=== PATIENT | male | born 1945 | race American Indian/Alaskan Native ===

== ENCOUNTER 2016-08-09 12:12 | Emergency (ER) | payer OTHER ==
[2016-08-09 12:25] VITALS: BP 176/84; TEMP 98.9
[2016-08-09] MEDS ORDERED: SODIUM CHLORIDE 0.9% 500 ML IV SCH (12:30)
[2016-08-09] MEDS ORDERED: IPRATROPIUM-ALBUTEROL 3 ML NEB INHALATION STA (12:47)
--- NOTE | 2016-08-09 12:47 | ED ---
General Adult HPI - General Chief complaint: Shortness of Breath Stated complaint: GAVIN Time Seen by Provider: 08/09/16 12:27 Source: patient, RN notes reviewed Mode of arrival: ambulatory Limitations: no limitations - History of Present Illness Initial comments: Patient is a 70-year-old male presents emergency room for evaluation of shortness of breath. Patient states he's been having sinus issues for the past year. Patient states he has seen his primary care provider last week and a sinus CT was ordered. Patient states he was diagnosed with polyps in his sinuses. Patient states they are not removing them until a year from now. Patient states that he feels like mucous is building up in his throat and is causing him to feel short of breath. Patient states he is only using an inhaler. Patient denies taking any other medications. Patient denies chest pain. Patient states that he had a productive cough earlier today. Patient states he has a history of COPD. Patient denies currently smoking. Patient denies any fevers or chills. Patient states he is having a slight headache. Patient denies nausea or vomiting. - Related Data Home Medications Medication Instructions Recorded Confirmed Albuterol Inhaler [Ventolin Hfa 2 puff INHALATION RT-Q4H PRN 08/09/16 08/09/16 Inhaler] Fluticasone Propionate [Flovent 2 puff INHALATION RT-BID 08/09/16 08/09/16 Hfa 110mcg] Previous Rx's Medication Instructions Recorded predniSONE 40 mg PO DAILY #5 tab 08/09/16 Allergies Allergy/AdvReac Type Severity Reaction Status Date / Time No Known Allergies Allergy Verified 08/09/16 14:06 Review of Systems ROS Statement: Those systems with pertinent positive or pertinent negative responses have been documented in the HPI. ROS Other: All systems not noted in ROS Statement are negative. Past Medical History Past Medical History: COPD History of Any Multi-Drug Resistant Organisms: None Reported Past Surgical History: No Surgical Hx Reported Past Psychological History: No Psychological Hx Reported Smoking Status: Former smoker Past Alcohol Use History: None Reported Past Drug Use History: Marijuana General Exam - General Exam Comments Initial Comments: Sitting in exam room without distress. Limitations: no limitations General appearance: alert, in no apparent distress Head exam: Present: atraumatic, normocephalic, normal inspection Eye exam: Present: normal appearance, PERRL, EOMI Pupils: Present: normal accommodation ENT exam: Present: normal exam, normal oropharynx, mucous membranes moist, TM's normal bilaterally, normal external ear exam Neck exam: Present: normal inspection, full ROM. Absent: tenderness, lymphadenopathy Respiratory exam: Present: wheezes. Absent: respiratory distress Cardiovascular Exam: Present: regular rate, normal rhythm, normal heart sounds Extremities exam: Present: normal inspection Back exam: Present: normal inspection Neurological exam: Present: alert, oriented X3, CN II-XII intact, normal gait Psychiatric exam: Present: normal affect, normal mood Skin exam: Present: warm, dry, intact, normal color. Absent: rash Course Vital Signs 08/09/16 08/09/16 08/09/16 12:19 12:49 12:59 Temperature 98.9 F Pulse Rate 98 78 Respiratory 24 20 Rate Blood Pressure 176/84 O2 Sat by Pulse 93 L Oximetry 08/09/16 13:08 Temperature Pulse Rate 79 Respiratory Rate Blood Pressure O2 Sat by Pulse Oximetry EKG Findings - EKG Comments: EKG Findings:: Normal sinus rhythm, ventricular rate 88 bpm, DC interval 138 ms , QRS duration 74 ms, QT/QTC 352/425 ms Medical Decision Making - Medical Decision Making Patient is a 60-year-old male presents emergency room for evaluation of shortness of breath. Patient states that he was diagnosed with sinus polyps. Patient's primary care provider is planning on removing them in a year. Patient did give me his CT report of the sinuses. CT sinuses noncontrast: There is almost completely opacified medication of the left maxillary antrum with a nodular fluid density measuring 3.3 cm consistent with a retention cyst. Right maxillary antrum inferiorly there is a 15 mm retention cyst. Minimal mucosal thickening on the right. Mucosal irregularity of the turbinates bilaterally. Nasal septum deviates to the left. patient was given nebulized treatments states that he is feeling 100% better and would like to be discharged home.chest x-ray significant for COPD. Patient was placed on prednisone and advised to follow-up with his primary care provider or ENT. Labs show no concerning findings. Patient states he understands everything that was discussed with him. Return parameters discussed. Case discussed with Dr. Bryant. - Lab Data Result diagrams: 08/09/16 12:35 08/09/16 12:35 Lab Results 05/12/17 05/12/17 05/12/17 Range/Units 12:35 12:35 12:35 WBC 7.1 (3.8-10.6) k/uL RBC 5.29 (4.30-5.90) m/uL Hgb 15.2 (13.0-17.5) gm/dL Hct 46.7 (39.0-53.0) % MCV 88.3 (80.0-100.0) fL MCH 28.7 (25.0-35.0) pg MCHC 32.5 (31.0-37.0) g/dL RDW 13.5 (11.5-15.5) % Plt Count 312 (150-450) k/uL Neutrophils % 72 % Lymphocytes % 15 % Monocytes % 7 % Eosinophils % 3 % Basophils % 1 % Neutrophils # 5.1 (1.3-7.7) k/uL Lymphocytes # 1.1 (1.0-4.8) k/uL Monocytes # 0.5 (0-1.0) k/uL Eosinophils # 0.2 (0-0.7) k/uL Basophils # 0.1 (0-0.2) k/uL PT (9.0-12.0) sec INR (<1.1) APTT (22.0-30.0) sec Sodium 144 (137-145) mmol/L Potassium 4.2 (3.5-5.1) mmol/L Chloride 106 (98-107) mmol/L Carbon Dioxide 27 (22-30) mmol/L Anion Gap 11 mmol/L BUN 17 (9-20) mg/dL Creatinine 1.20 (0.66-1.25) mg/dL Est GFR (MDRD) Af Amer >60 (>60 ml/min/1.73 sqM) Est GFR (MDRD) Non-Af >60 (>60 ml/min/1.73 sqM) Glucose 127 H (74-99) mg/dL Plasma Lactic Acid Max (0.7-2.0) mmol/L Calcium 9.6 (8.4-10.2) mg/dL Total Bilirubin 0.6 (0.2-1.3) mg/dL AST 14 L (17-59) U/L ALT 25 (21-72) U/L Alkaline Phosphatase 91 (38-126) U/L Total Creatine Kinase 46 L (55-170) U/L CK-MB (CK-2) 0.7 (0.0-2.4) ng/mL CK-MB (CK-2) Rel Index 1.5 Troponin I <0.012 (0.000-0.034) ng/mL Total Protein 7.6 (6.3-8.2) g/dL Albumin 4.4 (3.5-5.0) g/dL 08/09/16 08/09/16 Range/Units 12:35 12:35 WBC (3.8-10.6) k/uL RBC (4.30-5.90) m/uL Hgb (13.0-17.5) gm/dL Hct (39.0-53.0) % MCV (80.0-100.0) fL MCH (25.0-35.0) pg MCHC (31.0-37.0) g/dL RDW (11.5-15.5) % Plt Count (150-450) k/uL Neutrophils % % Lymphocytes % % Monocytes % % Eosinophils % % Basophils % % Neutrophils # (1.3-7.7) k/uL Lymphocytes # (1.0-4.8) k/uL Monocytes # (0-1.0) k/uL Eosinophils # (0-0.7) k/uL Basophils # (0-0.2) k/uL PT 10.1 (9.0-12.0) sec INR 1.0 (<1.1) APTT 26.2 (22.0-30.0) sec Sodium (137-145) mmol/L Potassium (3.5-5.1) mmol/L Chloride (98-107) mmol/L Carbon Dioxide (22-30) mmol/L Anion Gap mmol/L BUN (9-20) mg/dL Creatinine (0.66-1.25) mg/dL Est GFR (MDRD) Af Amer (>60 ml/min/1.73 sqM) Est GFR (MDRD) Non-Af (>60 ml/min/1.73 sqM) Glucose (74-99) mg/dL Plasma Lactic Acid Max 1.1 (0.7-2.0) mmol/L Calcium (8.4-10.2) mg/dL Total Bilirubin (0.2-1.3) mg/dL AST (17-59) U/L ALT (21-72) U/L Alkaline Phosphatase (38-126) U/L Total Creatine Kinase (55-170) U/L CK-MB (CK-2) (0.0-2.4) ng/mL CK-MB (CK-2) Rel Index Troponin I (0.000-0.034) ng/mL Total Protein (6.3-8.2) g/dL Albumin (3.5-5.0) g/dL - Radiology Data Radiology results: report reviewed, image reviewed Disposition Clinical Impression: Sinusitis Disposition: HOME SELF-CARE Condition: Good Instructions: Sinusitis (ED) Additional Instructions: Take prednisone as directed. Continue the inhaler as needed. Please follow up with primary care provider or ear, nose and throat specialist. If any new symptom arises or symptoms worsen, return to ER as soon as possible. Prescriptions: predniSONE 40 mg PO DAILY #5 tab Referrals: Nonstaff,Physician [Primary Care Provider] - 1-2 days Rasheed Bajwa MD [STAFF PHYSICIAN] - 1-2 days Time of Disposition: 14:37
[2016-08-09 12:53] VITALS: RESP 20
[2016-08-09 13:03] LABS: Basophils # (A) 0.1 k/uL (0-0.2); Basophils % (A) 1 %; CH 28.9; CHCM 32.8; Eosinophils # (A) 0.2 k/uL (0-0.7); Eosinophils % (A) 3 %; HCT 46.7 % (39.0-53.0); HDW 2.47; HGB 15.2 gm/dL (13.0-17.5); Luc # (Auto) 0.19; Luc % (Auto) 3; Lymphocytes # (A) 1.1 k/uL (1.0-4.8); Lymphocytes % (A) 15 %; MCH 28.7 pg (25.0-35.0); MCHC 32.5 g/dL (31.0-37.0); MCV 88.3 fL (80.0-100.0); Monocytes # (A) 0.5 k/uL (0-1.0); Monocytes % (A) 7 %; Neutrophils # (A) 5.1 k/uL (1.3-7.7); Neutrophils % (A) 72 %; RBC 5.29 m/uL (4.30-5.90); RDW 13.5 % (11.5-15.5); WBC 7.1 k/uL (3.8-10.6); WBC (Perox) 7.26
[2016-08-09 13:12] VITALS: PULSE 79
[2016-08-09 13:19] LABS: Creatine Kinase 46 U/L (55-170)
[2016-08-09 13:25] LABS: ALT 25 U/L (21-72); AST 14 U/L (17-59); Alkaline Phosphatase 91 U/L (38-126); Anion Gap 11 mmol/L; Blood Urea Nitrogen 17 mg/dL (9-20); Calcium 9.6 mg/dL (8.4-10.2); Carbon Dioxide 27 mmol/L (22-30); Chloride 106 mmol/L (98-107); Glucose 127 mg/dL (74-99); Non-African American GFR(MDRD) >60 (>60 ml/min/1.73 sqM); Potassium 4.2 mmol/L (3.5-5.1); Sodium 144 mmol/L (137-145); Total Bilirubin 0.6 mg/dL (0.2-1.3); Total Protein 7.6 g/dL (6.3-8.2)
--- NOTE | 2016-08-09 13:29 | XR ---
EXAMINATION TYPE: XR chest 2V DATE OF EXAM: 08/09/2016 1:26 PM HISTORY: Fever. REFERENCE: NONE. FINDINGS: The lungs are overinflated. The lungs appear clear. Pleural space are clear. Heart size is normal. There is been previous mediastinal surgery. IMPRESSION: 1. COPD. 2. POSTSURGICAL CHANGE.
[2016-08-09 13:32] LABS: Creatine Kinase MB 0.7 ng/mL (0.0-2.4); Troponin I <0.012 ng/mL (0.000-0.034)
[2016-08-09 14:21] LABS: Partial Thromboplastin Time 26.2 sec (22.0-30.0); Prothrombin Time 10.1 sec (9.0-12.0)
== END 2016-08-09 14:53 | disposition home or self-care (01) ==
LOC: EC 12:12
DX: J32.9 Chronic sinusitis, unspecified (principal); R06.02 Shortness of breath; J34.2 Deviated nasal septum; J44.9 Chronic obstructive pulmonary disease, unspecified; Z87.891 Personal history of nicotine dependence; Z79.51 Long term (current) use of inhaled steroids
CPT/HCPCS: 36415; 71020; 80053; 82550; 82553; 83605; 84484; 85025; 85610; 85730; 87040; 93005; 94640; 96360; 96361; 99285